=== PATIENT | female | born 1965 | race American Indian/Alaskan Native ===

== ENCOUNTER 2017-08-03 11:02 | Emergency (ER) | payer MEDICAID ==
[2017-08-03 11:56] VITALS: BP 146/82
[2017-08-03 12:17] LABS: Basophils # (Auto) 0.1 K/mm3 (0.0-0.1); Basophils % (Auto) 0.7 % (0.0-1.8); Eosinophils # (Auto) 0.1 K/mm3 (0.0-0.4); Eosinophils % (Auto) 1.1 % (0.0-4.3); Hematocrit 38.9 % (30.3-42.9); Hemoglobin 12.6 gm/dl (10.1-14.3); Lymphocytes # (Auto) 3.1 K/mm3 (1.2-5.4); Lymphocytes % (Auto) 29.6 % (13.4-35.0); Mean Corpuscular HGB Conc 32 % (30-34); Mean Corpuscular Hemoglobin 27 pg (28-32); Mean Corpuscular Volume 83 fl (79-97); Monocytes # (Auto) 0.8 K/mm3 (0.0-0.8); Monocytes % (Auto) 7.2 % (0.0-7.3); Platelet Count 284 K/mm3 (140-440); Red Blood Count 4.71 M/mm3 (3.65-5.03); Red Cell Distribution Width 13.3 % (13.2-15.2)
[2017-08-03 12:29] LABS: BUN/Creatinine Ratio 18; Blood Urea Nitrogen 14 mg/dL (7-17); Hemolysis Index 0
== END 2017-08-03 16:00 | disposition left against medical advice (07) ==
LOC: ED 11:02
DX: F20.9 Schizophrenia, unspecified (principal); Z90.49 Acquired absence of other specified parts of digestive tract; Z53.21 Procedure and treatment not carried out due to patient leaving prior to being seen by health care provider; Z79.899 Other long term (current) drug therapy
CPT/HCPCS: 36415; 80048; 85025; G0480; 80320

== ENCOUNTER 2017-08-06 11:28 | Emergency (ER) | payer MEDICAID ==
[2017-08-06 11:38] VITALS: BP 140/51
--- NOTE | 2017-08-06 12:12 | Emergency Department Report ---
ED Psych HPI - General Chief Complaint: Psych Stated Complaint: MENTAL HEALTH EVALUATION Time Seen by Provider: 08/06/17 11:57 Source: patient Mode of arrival: Ambulatory - History of Present Illness Initial Comments: Seen here 3 years ago for same 52-year-old patient states she's been doing crack now with hearing voices telling her to kill herself she is here for evaluation of detox hearing voices possible suicidal ideation MD Complaint: suicidal ideation, feels depressed -: Gradual, days(s), unknown Associated Psychiatric Symptoms: depression, auditory hallucinations, delusions History of same: Yes Quality: intermittent Improves With: none Worsens With: none Associated Symptoms: denies other symptoms, other (no medical complaints of chest pain no abdominal pain no stiff neck no fever no headache no focal neural complaints of trauma). denies: shortness of breath, nausea, vomiting, syncope, insomnia - Related Data Home Medications Medication Instructions Recorded Confirmed Last Taken Benztropine [Cogentin] 2 mg PO QHS 04/23/14 02/26/15 Unknown Sertraline [Zoloft] 50 mg PO QDAY 04/23/14 02/26/15 Unknown risperiDONE [RisperDAL] 4 mg PO QHS 04/23/14 02/26/15 Unknown Allergies Allergy/AdvReac Type Severity Reaction Status Date / Time No Known Allergies Allergy Verified 04/23/14 17:43 ED Review of Systems ROS: Stated complaint: MENTAL HEALTH EVALUATION Other details as noted in HPI Comment: All other systems reviewed and negative Constitutional: denies: diaphoresis, fever, malaise Eyes: denies: eye discharge, vision change ENT: denies: dental pain, hearing loss, epistaxis Respiratory: denies: shortness of breath, SOB with exertion, SOB at rest, stridor Cardiovascular: denies: chest pain, palpitations, dyspnea on exertion, orthopnea , edema, syncope, paroxysmal nocturnal dyspnea Gastrointestinal: denies: abdominal pain, nausea, vomiting, diarrhea, constipation, hematemesis, melena, hematochezia Genitourinary: denies: frequency, hematuria, discharge Musculoskeletal: denies: joint swelling, arthralgia Skin: denies: change in color, change in hair/nails, pruritus Neurological: denies: numbness, paresthesias, confusion Psychiatric: denies: auditory hallucinations, visual hallucinations, homicidal thoughts ED Past Medical Hx - Past Medical History Hx Diabetes: Yes Hx Psychiatric Treatment: Yes (schizophrenia) - Surgical History Hx Cholecystectomy: Yes Additional Surgical History: tumor removed - Social History Smoking Status: Current Some Day Smoker Substance Use Type: Cocaine - Medications Home Medications: Home Medications Medication Instructions Recorded Confirmed Last Taken Type Benztropine [Cogentin] 2 mg PO QHS 04/23/14 02/26/15 Unknown History Sertraline [Zoloft] 50 mg PO QDAY 04/23/14 02/26/15 Unknown History risperiDONE [RisperDAL] 4 mg PO QHS 04/23/14 02/26/15 Unknown History ED Physical Exam - General Limitations: No Limitations General appearance: alert, anxious - Head Head exam: Present: atraumatic, normocephalic - Eye Eye exam: Present: PERRL, EOMI - ENT ENT exam: Present: normal exam, normal orophraynx - Neck Neck exam: Present: normal inspection. Absent: tenderness, meningismus - Respiratory Respiratory exam: Present: normal lung sounds bilaterally. Absent: respiratory distress, wheezes, rales, rhonchi, stridor, accessory muscle use - Cardiovascular Cardiovascular Exam: Present: regular rate, normal rhythm, normal heart sounds. Absent: bradycardia, tachycardia, systolic murmur - GI/Abdominal GI/Abdominal exam: Present: soft. Absent: distended, tenderness, guarding, rebound, rigid, mass, pulsatile mass - Extremities Exam Extremities exam: Present: normal inspection, normal capillary refill. Absent: pedal edema, joint swelling - Neurological Exam Neurological exam: Present: alert, oriented X3, CN II-XII intact. Absent: motor sensory deficit - Psychiatric Psychiatric exam: Present: depressed, anxious - Skin Skin exam: Present: warm. Absent: cyanosis, diaphoretic, erythema, urticaria, vesicles, petechiae, pallor, abrasion, ecchymosis ED Course Vital Signs 08/06/17 08/06/17 11:32 11:55 Temperature 98.1 F Pulse Rate 107 H Respiratory 18 Rate Blood Pressure 140/51 ED Medical Decision Making - Lab Data Result diagrams: 08/06/17 11:55 08/06/17 11:55 - Medical Decision Making Patient doesn't have evidence of UTI glucose is improved in the ED she is essentially medically cleared for psychiatric evaluation was obtained by the mental health counselor who did not feel that she was currently actively suicidal we will therefore release a 1013 she is not acutely psychotic at this point time she is not gravely disabled she is not homicidal suicidal she is now improved. 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 ED Disposition Clinical Impression: Drug abuse, Medical clearance for psychiatric admission, Cocaine abuse Disposition: TO HOME OR SELFCARE Is pt being admited?: No Condition: Stable Instructions: Cocaine Abuse (ED), Depression (ED), Polysubstance Abuse (ED) Additional Instructions: Return immediately or call 911 if new or alarming symptoms worsening depression suicidal thoughts you were instructed to see Constantino Rose as directed by the counselor he also crisis line to call or call 911 if having depression or suicidal thoughts return immediately to the nearest ER stopped doing drugs and get detox and called Narcotics Anonymous Referrals: PRIMARY CAREMD [Primary Care Provider] - 3-5 Days Time of Disposition: 16:27
[2017-08-06 12:23] LABS: BUN/Creatinine Ratio 14; Basophils # (Auto) 0.1 K/mm3 (0.0-0.1); Basophils % (Auto) 0.6 % (0.0-1.8); Blood Urea Nitrogen 10 mg/dL (7-17); Calcium 9.5 mg/dL (8.4-10.2); Eosinophils # (Auto) 0.1 K/mm3 (0.0-0.4); Hemoglobin 12.6 gm/dl (10.1-14.3); Hemolysis Index 5; Lymphocytes # (Auto) 2.9 K/mm3 (1.2-5.4); Lymphocytes % (Auto) 28.5 % (13.4-35.0); Mean Corpuscular HGB Conc 32 % (30-34); Mean Corpuscular Hemoglobin 27 pg (28-32); Mean Corpuscular Volume 82 fl (79-97); Monocytes # (Auto) 0.8 K/mm3 (0.0-0.8); Monocytes % (Auto) 7.5 % (0.0-7.3); Platelet Count 294 K/mm3 (140-440); Red Blood Count 4.73 M/mm3 (3.65-5.03); Red Cell Distribution Width 13.5 % (13.2-15.2)
[2017-08-06 12:30] LABS: Bacteria,Urine 1+ /HPF (Negative); Bilirubin,Urine NEG (Negative); Blood,Urine NEG (Negative); Color,Urine Yellow (Yellow); Mucus,Urine 1+ /HPF; Urobilinogen,Urine < 2.0 mg/dL (<2.0)
[2017-08-06 12:33] LABS: Amphetamine Screen,Urine PRESUMPTIVE NEGATIVE; Benzodiazepines Screen,Urine PRESUMPTIVE NEGATIVE; Cannabinoid Screen,Urine PRESUMPTIVE NEGATIVE; Methadone Screen,Urine PRESUMPTIVE NEGATIVE; Opiate Screen,Urine PRESUMPTIVE NEGATIVE
[2017-08-06 12:57] LABS: Cocaine Screen,Urine PRESUMPTIVE POSITIVE
[2017-08-06] MEDS ORDERED: HumuLIN R SUB-Q ONE (13:18)
[2017-08-06] MEDS ORDERED: XYLOCAINE 1% MPF 5 mL INFILTRATI ONE (13:18)
[2017-08-06] MEDS ORDERED: ROCEPHIN IM ONE (13:18)
== END 2017-08-06 16:49 | disposition home or self-care (01) ==
LOC: ED 11:28
DX: F20.9 Schizophrenia, unspecified (principal); F17.200 Nicotine dependence, unspecified, uncomplicated; F14.10 Cocaine abuse, uncomplicated; E11.9 Type 2 diabetes mellitus without complications
CPT/HCPCS: 36415; 80048; 80307; 81001; 82962; 85025; 96372; 99283; G0480; J0696; 80320; J1815

== ENCOUNTER 2017-09-16 00:20 | Emergency (ER) | payer MEDICAID ==
[2017-09-16 01:41] LABS: Basophils # (Auto) 0.1 K/mm3 (0.0-0.1); Basophils % (Auto) 0.9 % (0.0-1.8); Eosinophils # (Auto) 0.1 K/mm3 (0.0-0.4); Eosinophils % (Auto) 1.1 % (0.0-4.3); Hematocrit 40.2 % (30.3-42.9); Hemoglobin 13.1 gm/dl (10.1-14.3); Lymphocytes # (Auto) 2.8 K/mm3 (1.2-5.4); Mean Corpuscular HGB Conc 33 % (30-34); Mean Corpuscular Hemoglobin 27 pg (28-32); Mean Corpuscular Volume 82 fl (79-97); Monocytes % (Auto) 10.7 % (0.0-7.3); Platelet Count 342 K/mm3 (140-440); Red Blood Count 4.89 M/mm3 (3.65-5.03); Red Cell Distribution Width 14.9 % (13.2-15.2)
[2017-09-16 01:56] LABS: BUN/Creatinine Ratio 17; Blood Urea Nitrogen 12 mg/dL (7-17); Calcium 10.3 mg/dL (8.4-10.2); Hemolysis Index 10
[2017-09-16 02:53] LABS: Bilirubin,Urine NEG (Negative); Blood,Urine NEG (Negative); Color,Urine Yellow (Yellow); Mucus,Urine FEW /HPF; Protein,Urine <15 mg/dL mg/dL (Negative)
[2017-09-16 02:58] LABS: Amphetamine Screen,Urine PRESUMPTIVE NEGATIVE; Benzodiazepines Screen,Urine PRESUMPTIVE NEGATIVE; Cannabinoid Screen,Urine PRESUMPTIVE NEGATIVE; Cocaine Screen,Urine PRESUMPTIVE NEGATIVE; Methadone Screen,Urine PRESUMPTIVE NEGATIVE; Opiate Screen,Urine PRESUMPTIVE NEGATIVE
--- NOTE | 2017-09-16 06:24 | Emergency Department Report ---
ED Psych HPI - General Chief Complaint: Psych Stated Complaint: MH EVALUATION Time Seen by Provider: 09/16/17 06:23 Source: patient Mode of arrival: Ambulatory Limitations: No Limitations - History of Present Illness MD Complaint: suicidal ideation -: Gradual Associated Psychiatric Symptoms: suicidal ideation, auditory hallucinations History of same: Yes Quality: constant Improves With: none Worsens With: none Context: not taking psychiatric Associated Symptoms: denies other symptoms Treatments Prior to Arrival: none If Self Harm: admits thoughts of - Related Data Home Medications Medication Instructions Recorded Confirmed Last Taken Benztropine [Cogentin] 2 mg PO QHS 04/23/14 02/26/15 Unknown Sertraline [Zoloft] 50 mg PO QDAY 04/23/14 02/26/15 Unknown risperiDONE [RisperDAL] 4 mg PO QHS 04/23/14 02/26/15 Unknown Previous Rx's Medication Instructions Recorded Last Taken Type Cephalexin [Keflex] 500 mg PO Q6HR #28 capsule 08/06/17 Unknown Rx Allergies Allergy/AdvReac Type Severity Reaction Status Date / Time No Known Allergies Allergy Verified 04/23/14 17:43 ED Review of Systems ROS: Stated complaint: MH EVALUATION Other details as noted in HPI Comment: All other systems reviewed and negative Constitutional: denies: chills, fever Eyes: denies: eye pain, eye discharge ENT: denies: ear pain Respiratory: denies: cough, shortness of breath Cardiovascular: denies: chest pain, palpitations Endocrine: increased thirst Gastrointestinal: denies: abdominal pain, nausea, vomiting, diarrhea Genitourinary: denies: urgency, dysuria, frequency Musculoskeletal: denies: back pain, joint swelling Skin: denies: rash Neurological: denies: headache, weakness, numbness Psychiatric: auditory hallucinations, suicidal thoughts. denies: anxiety, depression, homicidal thoughts Hematological/Lymphatic: denies: easy bleeding, easy bruising ED Past Medical Hx - Past Medical History Previous Medical History?: Yes Hx Diabetes: Yes Hx Psychiatric Treatment: Yes (schizophrenia) - Surgical History Past Surgical History?: Yes Hx Cholecystectomy: Yes Additional Surgical History: tumor removed - Social History Smoking Status: Never Smoker Substance Use Type: Cocaine - Medications Home Medications: Home Medications Medication Instructions Recorded Confirmed Last Taken Type Benztropine [Cogentin] 2 mg PO QHS 04/23/14 02/26/15 Unknown History Sertraline [Zoloft] 50 mg PO QDAY 04/23/14 02/26/15 Unknown History risperiDONE [RisperDAL] 4 mg PO QHS 04/23/14 02/26/15 Unknown History Cephalexin [Keflex] 500 mg PO Q6HR #28 capsule 08/06/17 Unknown Rx ED Physical Exam - General Limitations: No Limitations General appearance: alert, in no apparent distress - Head Head exam: Present: atraumatic, normocephalic, normal inspection - Eye Eye exam: Present: normal appearance, PERRL, EOMI Pupils: Present: normal accommodation - ENT ENT exam: Present: normal exam, normal orophraynx, mucous membranes moist - Neck Neck exam: Present: normal inspection, full ROM. Absent: tenderness - Respiratory Respiratory exam: Present: normal lung sounds bilaterally. Absent: respiratory distress, wheezes, rales, rhonchi, stridor - Cardiovascular Cardiovascular Exam: Present: regular rate, normal rhythm, normal heart sounds - GI/Abdominal GI/Abdominal exam: Present: soft, normal bowel sounds. Absent: distended, tenderness, guarding, rebound - Extremities Exam Extremities exam: Present: normal inspection, full ROM, normal capillary refill - Back Exam Back exam: Present: normal inspection, full ROM. Absent: tenderness, CVA tenderness (R), CVA tenderness (L) - Neurological Exam Neurological exam: Present: alert, oriented X3, CN II-XII intact - Psychiatric Psychiatric exam: Present: normal affect, flat affect, suicidal ideation. Absent: agitated, homicidal ideation - Skin Skin exam: Present: warm, dry, intact, normal color. Absent: rash ED Course Vital Signs 09/16/17 09/16/17 00:23 05:36 Temperature 98.4 F 98.7 F Pulse Rate 101 H 89 Respiratory 22 18 Rate Blood Pressure 155/94 109/56 O2 Sat by Pulse 98 98 Oximetry - Reevaluation(s) Reevaluation #1: 09/16/17 10:50 Patient is medically cleared for psych evaluation. ED Medical Decision Making - Lab Data Result diagrams: 09/16/17 01:18 09/16/17 01:18 - Radiology Data Radiology results: report reviewed - Medical Decision Making Suicide Ideation. Auditory Hallucination. Critical care attestation.: If time is entered above; I have spent that time in minutes in the direct care of this critically ill patient, excluding procedure time. 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
[2017-09-16] MEDS ORDERED: HumuLIN R SUB-Q ONE (06:37)
[2017-09-16] MEDS ORDERED: NACL 0.9% 1000 ML 1,000 ML IV ONE ×2 (09:13)
--- NOTE | 2017-09-16 12:47 | Consultation ---
History of Present Illness - Reason for Consult Consult date: 09/16/17 Reason for consult: Mental Health Evaluation Requesting physician: RAIN NICE - Chief Complaint Chief complaint: "I am not feeling well" - History of Present Psychiatric Illness 52 y.o. AA female presenting to the ER for AH's and SI's. Today the patient is calm and cooperative during the assessment. She stated hearing voices for several days. She stated that the voices are telling her to kill herself. She denies a suicide plan when asked. She would not confirm or deny a previous suicide attempt when asked. She stated that she was inpatient to a mental health facility a couple weeks ago. She stated that she receive the monthly Haldol injection, last injection before she was discharged from the mental health facility. She stated being on Haldol for months. Also, she stated being homeless. She denies HI's and VH's. She denies recreational drug use and alcohol consumption (etoh). Medications and Allergies Allergies Allergy/AdvReac Type Severity Reaction Status Date / Time No Known Allergies Allergy Verified 04/23/14 17:43 Home Medications Medication Instructions Recorded Confirmed Last Taken Type Benztropine [Cogentin] 2 mg PO QHS 04/23/14 09/16/17 Unknown History Sertraline [Zoloft] 50 mg PO QDAY 04/23/14 09/16/17 Unknown History risperiDONE [RisperDAL] 4 mg PO QHS 04/23/14 09/16/17 Unknown History Cephalexin [Keflex] 500 mg PO Q6HR #28 capsule 08/06/17 09/16/17 Unknown Rx Past psychiatric history - Past Medical History Past Medical History: diabetes Past Surgical History: No surgical history - past Psychiatric treatment and history psychiatric treatment history: Several inpatient psy settings. She cannot confirm or deny a fam psy hx. Mental Status Exam - Vital signs Last Vital Signs Temp 98.7 F 09/16/17 05:36 Pulse 89 09/16/17 05:36 Resp 18 09/16/17 05:36 BP 109/56 09/16/17 05:36 Pulse Ox 98 09/16/17 05:36 - Exam Narrative exam: MSE: Appearance: calm Behavior: poor eye contact Speech: regular rate and tone, hyper verbal Mood: "okay" Affect: congruent to mood Thought Process: disorganized Thought Content: denies HI's and VH's Motor Activity: sitting up in bed Cognition: A/O x 3 Insight: poor Judgment: poor Results Result Diagrams: 09/16/17 01:18 09/16/17 01:18 Abnormal lab results 09/16/17 09/16/17 09/16/17 Range/Units 01:18 01:18 01:18 MCH (28-32) pg Bay % (Auto) (0.0-7.3) % Bay # (0.0-0.8) K/mm3 Glucose 204 H (65-100) mg/dL POC Glucose (70-105) Calcium 10.3 H (8.4-10.2) mg/dL Salicylates < 0.3 L (2.8-20.0) mg/dL Acetaminophen < 5.0 L (10.0-30.0) ug/mL 09/16/17 09/16/17 09/16/17 Range/Units 01:18 05:41 07:12 MCH 27 L (28-32) pg Bay % (Auto) 10.7 H (0.0-7.3) % Bay # 1.0 H (0.0-0.8) K/mm3 Glucose (65-100) mg/dL POC Glucose 261 H 271 H (70-105) Calcium (8.4-10.2) mg/dL Salicylates (2.8-20.0) mg/dL Acetaminophen (10.0-30.0) ug/mL 09/16/17 Range/Units 10:52 MCH (28-32) pg Bay % (Auto) (0.0-7.3) % Bay # (0.0-0.8) K/mm3 Glucose (65-100) mg/dL POC Glucose 192 H (70-105) Calcium (8.4-10.2) mg/dL Salicylates (2.8-20.0) mg/dL Acetaminophen (10.0-30.0) ug/mL All other labs normal. Assessment and Plan Assessment and plan: Impression: Unspecified Psychosis. Today the patient is calm and cooperative during the assessment. UDS is negative. DDx: Schizophrenia, R/O Schizoaffective, R/O Bipolar DO with psychosis Recommendation/Plan: Continue 1013 with placement to inpatient psy services. Start Haldol 5 mg PO HS for psychosis. Per the patient she receive the monthly Haldol injection. Last injection "a couple weeks ago." Discussed possible EPS side effects of Haldol with patient.
--- NOTE | 2017-09-17 17:30 | Progress Note ---
Subjective - Reason for Consult Consult date: 09/17/17 Reason for consult: Psychiatric Follow-up Evaluation - Chief Complaint Chief complaint: "I feel good. " Patient is a 52 year old female who presents to the ER for AH 's and SI's. Today the patient is cooperative but anxious during the assessment. At times, patient thought process is disorganized and circumstantial. She states, " I feel good. I want to go to rehab. I'm here because I was on crack cocaine." She reports good sleep and appetite, although she does not like the food. She denies SI/HI's, A/VH's, and delusions. Medication compliance reported. She denies side effects of medication. Currently , patient is homeless. Mental Status Exam - Vital signs Last Vital Signs Temp 97.7 F 09/16/17 20:44 Pulse 90 09/16/17 20:44 Resp 20 09/17/17 12:03 BP 118/66 09/16/17 20:44 Pulse Ox 99 09/17/17 12:03 - Exam Narrative exam: Mental Status Exam General Appearance: Causally Dressed-hospital gown Eye Contact: Intermittent Orientation: Alert and oriented x 4 ( person, place, time, and situation) Attitude/Behavior: Cooperative Sensorium: Distracted Psychomotor & Musculoskeletal Activity: Laying in bed Mood: " Good." Anxious. Affect: Congruent with mood. Speech/Language: Regular rate and tone. Thought Processes: Circumstantial Thought Content: Impoverished. Patient denies delusions. Perception: Patient denies A/V/T hallucinations. Concentration/Attention: Impaired Suicidal Ideations/Plan: Patient denies. " No ma'am" Homicidal Ideations/Plan: Patient denies. " No ma'am" Insight: Variable Judgment: Variable Assessment and Plan Impression: Unspecified Psychosis. Today the patient is cooperative but anxious during the assessment. At times patient thought process is disorganized and circumstantial. She denies SI's, HI's, and delusions. UDS is negative. DDx: Schizophrenia, R/O Schizoaffective, R/O Bipolar DO with psychosis Recommendation/Plan: 1. Continue 1013 with placement to inpatient psychiatric services. 2. Continue Haldol 5 mg PO HS for psychosis. Per the patient she receive the monthly Haldol injection. Last injection "a couple weeks ago." Discussed possible EPS side effects of Haldol with patient. 3. Will continue to monitor mood, psychosis, sleep, appetite, compliance, and side effects.
[2017-09-17] MEDS: HALDOL PO SCH (21:57)
[2017-09-18] MEDS: HALDOL PO SCH (21:53)
--- NOTE | 2017-09-19 11:09 | Progress Note ---
Subjective - Reason for Consult Consult date: 09/19/17 Reason for consult: Psychiatry Follow-up - Chief Complaint Chief complaint: "I want to go to rehab" Patient is a 52 year old female who presents to the ER for AH 's and SI's. Today the patient is calm and cooperative during the assessment. The patient's thought process is circumstantial. She is adamant about going to rehab for her substance abuse hx. She denies SI/HI's and AVH's. She denies any side effects of her medications. Currently, patient is homeless. Mental Status Exam - Vital signs Last Vital Signs Temp 98.0 F 09/18/17 20:00 Pulse 101 H 09/18/17 20:00 Resp 20 09/18/17 20:00 BP 118/56 09/18/17 20:00 Pulse Ox 99 09/18/17 20:00 - Exam Narrative exam: MSE: Appearance: calm, cooperative Behavior: regular eye contact Speech: regular rate and tone Mood: "okay" Affect: congruent to mood Thought Process: circumstantial Thought Content: denies SI/HI's and AVH's Motor Activity: sitting up in bed Cognition: A/O x 3 Insight: variable Judgment: variable Assessment and Plan Impression: Unspecified Psychosis. Today the patient is calm and cooperative during the assessment. UDS is negative. DDx: Schizophrenia, R/O Schizoaffective, R/O Bipolar DO with psychosis Recommendation/Plan: Reevaluate 1013 in 24 hours to determine proper dipso. Continue Haldol 5 mg PO HS for psychosis. Per the patient she receive the monthly Haldol injection. Last injection "a couple weeks ago." Discussed possible EPS side effects of Haldol with patient.
[2017-09-19] MEDS: HALDOL PO SCH (22:00)
--- NOTE | 2017-09-20 12:02 | Progress Note ---
Subjective - Reason for Consult Consult date: 09/20/17 Reason for consult: Psychiatry Follow-up - Chief Complaint Chief complaint: "I am okay" Patient is a 52 year old female who presents to the ER for AH 's and SI's. Today the patient is calm and cooperative during the assessment. She stated that she will follow up with outpatient psy services when discharged. She stated that she will need placement because she's homeless. She denies Si/HI's and AVH's. Per the staff, no behavioral disturbance overnight. She denies any side effects of her medication. Mental Status Exam - Vital signs Last Vital Signs Temp 97.6 F 09/20/17 09:51 Pulse 94 H 09/20/17 09:51 Resp 20 09/20/17 09:51 BP 142/79 09/20/17 09:51 Pulse Ox 98 09/20/17 09:51 - Exam Narrative exam: MSE: Appearance: calm, cooperative Behavior: regular eye contact Speech: regular rate and tone Mood: "okay" Affect: congruent to mood Thought Process: circumstantial Thought Content: denies SI/HI's and AVH's Motor Activity: sitting up in bed Cognition: A/O x 3 Insight: fair Judgment: fair Assessment and Plan Impression: Unspecified Psychosis. Today the patient is calm and cooperative during the assessment. UDS is negative. This is the patient's baseline. DDx: Schizophrenia, R/O Schizoaffective, R/O Bipolar DO with psychosis Recommendation/Plan: Rescind 1013. Continue Haldol 5 mg PO HS for psychosis. Discussed possible EPS side effects of Haldol with patient. The patient can follow up at [facility] for outpatient psy services. Case Mgmt involvement, the patient will need placement.
[2017-09-21] MEDS: HALDOL PO SCH (00:04)
--- NOTE | 2017-09-21 11:00 | Emergency Department Report ---
Blank Doc - Documentation Documentation: As per the psych note, the patient has been evaluated multiple times and no longer appears to be a danger to herself and is not exhibiting any suicidal ideations. They have made the recommendation for the 1013 to be rescinded. The patient reiterated to me that she is not suicidal. She will be going to a nursing home from here with a safe discharge.
[2017-09-21 11:23] VITALS: BP 124/80
== END 2017-09-21 11:05 | disposition home or self-care (01) ==
LOC: ED 00:20 → EEVIPCON 00:20 → ED 09-21 11:05
DX: F20.9 Schizophrenia, unspecified (principal); E11.8 Type 2 diabetes mellitus with unspecified complications; Z90.49 Acquired absence of other specified parts of digestive tract; F14.10 Cocaine abuse, uncomplicated
CPT/HCPCS: 36415; 80048; 80307; 81001; 82962; 85025; 96372; 99284; G0480; 80320; 99285; J1815

== ENCOUNTER 2017-11-22 21:57 | Emergency (ER) | payer MEDICAID ==
--- NOTE | 2017-11-22 22:28 | Emergency Department Report ---
ED Psych HPI - General Chief Complaint: Psych Stated Complaint: DOUG EVAL Time Seen by Provider: 11/22/17 22:18 Source: EMS Mode of arrival: Ambulatory - History of Present Illness Initial Comments: Patient is 52 years old female with history of schizophrenia. Patient brought to the ER via police department. Patient stating that she is hearing voices asking her to jump in traffic. The patient denied any homicidal ideation. No visual hallucination. Patient had a previous suicide attempt with drug overdose. Patient admitted that she had been using cocaine in the last few days. MD Complaint: suicidal ideation Associated Psychiatric Symptoms: suicidal ideation, auditory hallucinations History of same: Yes Associated Symptoms: denies other symptoms If Self Harm: admits thoughts of, has plan - Related Data Home Medications Medication Instructions Recorded Confirmed Last Taken Benztropine [Cogentin] 2 mg PO QHS 04/23/14 09/16/17 Unknown Sertraline [Zoloft] 50 mg PO QDAY 04/23/14 09/16/17 Unknown risperiDONE [RisperDAL] 4 mg PO QHS 04/23/14 09/16/17 Unknown Previous Rx's Medication Instructions Recorded Last Taken Type cephALEXin [Keflex] 500 mg PO Q6HR #28 capsule 08/06/17 Unknown Rx Allergies Allergy/AdvReac Type Severity Reaction Status Date / Time No Known Allergies Allergy Verified 04/23/14 17:43 ED Review of Systems ROS: Stated complaint: DOUG EVAL Other details as noted in HPI Comment: All other systems reviewed and negative Constitutional: denies: chills, fever Respiratory: denies: cough, orthopnea, shortness of breath, SOB with exertion, SOB at rest, wheezing Cardiovascular: denies: chest pain, palpitations, dyspnea on exertion Gastrointestinal: denies: abdominal pain, nausea, vomiting, diarrhea, constipation, hematemesis, melena, hematochezia Neurological: denies: headache, weakness, numbness, paresthesias, confusion, abnormal gait ED Past Medical Hx - Past Medical History Previous Medical History?: Yes Hx Diabetes: Yes Hx Psychiatric Treatment: Yes (schizophrenia) - Surgical History Past Surgical History?: Yes Hx Cholecystectomy: Yes Additional Surgical History: tumor removed - Social History Smoking Status: Unknown if ever smoked Substance Use Type: Cocaine - Medications Home Medications: Home Medications Medication Instructions Recorded Confirmed Last Taken Type Benztropine [Cogentin] 2 mg PO QHS 04/23/14 09/16/17 Unknown History Sertraline [Zoloft] 50 mg PO QDAY 04/23/14 09/16/17 Unknown History risperiDONE [RisperDAL] 4 mg PO QHS 04/23/14 09/16/17 Unknown History cephALEXin [Keflex] 500 mg PO Q6HR #28 capsule 08/06/17 09/16/17 Unknown Rx ED Physical Exam - General Limitations: No Limitations General appearance: alert, in no apparent distress - Head Head exam: Present: atraumatic, normocephalic, normal inspection - Eye Eye exam: Present: normal appearance - ENT ENT exam: Present: normal exam, normal orophraynx, mucous membranes moist - Neck Neck exam: Present: normal inspection, full ROM. Absent: tenderness, meningismus, lymphadenopathy, thyromegaly - Respiratory Respiratory exam: Present: normal lung sounds bilaterally. Absent: respiratory distress, wheezes, rales, rhonchi, stridor, chest wall tenderness, accessory muscle use, decreased breath sounds, prolonged expiratory - Cardiovascular Cardiovascular Exam: Present: regular rate, normal rhythm, normal heart sounds - GI/Abdominal GI/Abdominal exam: Present: soft, normal bowel sounds. Absent: distended, tenderness, guarding, rebound, rigid, organomegaly, mass, bruit, pulsatile mass , hernia - Extremities Exam Extremities exam: Present: normal inspection, full ROM, normal capillary refill. Absent: tenderness, pedal edema, calf tenderness - Back Exam Back exam: Present: normal inspection, full ROM. Absent: tenderness, CVA tenderness (R), muscle spasm, paraspinal tenderness, vertebral tenderness - Neurological Exam Neurological exam: Present: alert, oriented X3, CN II-XII intact, normal gait, reflexes normal - Skin Skin exam: Present: warm, intact, normal color ED Course Vital Signs 11/22/17 22:00 Temperature 98.4 F Pulse Rate 102 H Respiratory 18 Rate Blood Pressure 134/84 Blood Pressure 134/84 [Right] O2 Sat by Pulse 98 Oximetry Critical care attestation.: If time is entered above; I have spent that time in minutes in the direct care of this critically ill patient, excluding procedure time. ED Disposition Clinical Impression: Acute psychosis, Suicidal ideation Disposition: [id number]/TX-65 PSY HOSP/PSY UNIT Is pt being admited?: No Condition: Stable
[2017-11-22 23:06] LABS: Bacteria,Urine 1+ /HPF (Negative); Bilirubin,Urine NEG (Negative); Blood,Urine NEG (Negative); Color,Urine Amber (Yellow); Mucus,Urine 3+ /HPF
[2017-11-22 23:09] LABS: HCG Qualitative,Urine Negative (Negative)
[2017-11-22 23:11] LABS: Basophils # (Auto) 0.1 K/mm3 (0.0-0.1); Basophils % (Auto) 0.7 % (0.0-1.8); Eosinophils # (Auto) 0.3 K/mm3 (0.0-0.4); Eosinophils % (Auto) 4.3 % (0.0-4.3); Hematocrit 35.5 % (30.3-42.9); Hemoglobin 11.5 gm/dl (10.1-14.3); Lymphocytes # (Auto) 3.1 K/mm3 (1.2-5.4); Lymphocytes % (Auto) 39.4 % (13.4-35.0); Mean Corpuscular HGB Conc 32 % (30-34); Mean Corpuscular Hemoglobin 26 pg (28-32); Mean Corpuscular Volume 80 fl (79-97); Monocytes # (Auto) 0.7 K/mm3 (0.0-0.8); Monocytes % (Auto) 9.7 % (0.0-7.3); Platelet Count 297 K/mm3 (140-440); Red Blood Count 4.42 M/mm3 (3.65-5.03); Red Cell Distribution Width 15.1 % (13.2-15.2)
[2017-11-22 23:12] LABS: Amphetamine Screen,Urine PRESUMPTIVE NEGATIVE; Benzodiazepines Screen,Urine PRESUMPTIVE NEGATIVE; Cannabinoid Screen,Urine PRESUMPTIVE NEGATIVE; Methadone Screen,Urine PRESUMPTIVE NEGATIVE; Opiate Screen,Urine PRESUMPTIVE NEGATIVE
[2017-11-22 23:33] LABS: BUN/Creatinine Ratio 9; Blood Urea Nitrogen 8 mg/dL (7-17); Calcium 9.9 mg/dL (8.4-10.2); Hemolysis Index 3
[2017-11-22 23:33] LABS: Cocaine Screen,Urine PRESUMPTIVE POSITIVE
[2017-11-23] MEDS ORDERED: LEVAQUIN PO SCH (01:00)
[2017-11-23] MEDS: LEVAQUIN PO SCH (09:43)
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
[2017-11-23] MEDS: HALDOL PO SCH (21:39)
[2017-11-24] MEDS: HALDOL PO SCH ×2 (10:48→22:41)
[2017-11-24] MEDS: LEVAQUIN PO SCH (10:49)
[2017-11-24] MEDS ORDERED: ATIVAN ONE (10:56)
[2017-11-24] MEDS ORDERED: ATIVAN PO ONE (11:04)
[2017-11-25] MEDS: LEVAQUIN PO SCH (11:19)
[2017-11-25] MEDS: HALDOL PO SCH ×2 (11:19→23:00)
[2017-11-26] MEDS: LEVAQUIN PO SCH (10:45)
[2017-11-26] MEDS: HALDOL PO SCH ×2 (10:45→21:33)
[2017-11-26] MEDS ORDERED: GEODON IM ONE (11:32)
[2017-11-26] MEDS ORDERED: ATIVAN ONE (11:35)
[2017-11-26] MEDS ORDERED: ATIVAN IM ONE (11:39)
--- NOTE | 2017-11-26 16:43 | Progress Note ---
Subjective - Reason for Consult Consult date: 11/26/17 Reason for consult: follow up - Chief Complaint Chief complaint: "I want to go to a fdc." Ms. Fuller is a 52 year old female who presented to the emergency room with command type auditory hallucinations. Patient stated that she was hearing voices asking her to jump in traffic. She reports recent use of cocaine. She asks for rehab but later asked to be sent to a fdc. She denies auditory hallucinations but does report paranoia 10/10 with 10 being the worst. She denies suicidal or homicidal ideation. She states the haldol is fine and does not have side effects. She reports fair sleep and appetite. Mental Status Exam - Vital signs Last Vital Signs Temp 97.8 F 11/25/17 20:00 Pulse 91 H 11/25/17 20:00 Resp 16 11/26/17 10:00 BP 140/98 11/25/17 20:00 Pulse Ox 98 11/26/17 10:00 Assessment and Plan Impression: Cocaine induced psychotic disorder: She reports auditory hallucinations and paranoia when she uses cocaine. She denies SI/HI. UDS positive for cocaine. Plan: Continue haldol 5mg po bid for psychotic symptoms. Continue 1013 with placement to inpatient psychiatric services. DDx: schizophrenia Staffed with Dr. Humberto Lopez
[2017-11-27] MEDS: LEVAQUIN PO SCH (10:45)
[2017-11-27] MEDS: HALDOL PO SCH ×2 (10:45→22:01)
--- NOTE | 2017-11-27 16:41 | Progress Note ---
Subjective - Reason for Consult Consult date: 11/27/17 Reason for consult: follow up - Chief Complaint Chief complaint: "I want to leave." Ms. Fuller is a 52 year old female who presented to the emergency room with command type auditory hallucinations. Patient stated that she was hearing voices asking her to jump in traffic. She reports recent use of cocaine. She repeatedly asked to leave and go to a residential. She denies suicidal or homicidal ideation. She denies side effects to haldol. She reports fair sleep and appetite. She began yelling and crying when she found out she could not leave. Mental Status Exam - Vital signs Last Vital Signs Temp 98.1 F 11/27/17 13:08 Pulse 85 11/27/17 13:08 Resp 16 11/27/17 13:08 BP 101/51 11/27/17 13:08 Pulse Ox 98 11/27/17 13:08 - Exam Narrative exam: Mental status exam: Orientation: time, place, person Affect: congruent Mood: irritable Thought content: other (denies suicidal or homicidal ideation) Thought Process: Intact Perceptions: states voices are gone. paranoia + Speech: normal rate and pattern Concentration: focused Motor activity: normal Level of consciousness: alert Memory: Intact Sleep Symptoms: fair Interaction: cooperative Insight: variable Judgment: variable Assessment and Plan Impression: Cocaine induced psychotic disorder: She reports auditory hallucinations and paranoia when she uses cocaine. She denies SI/HI. UDS positive for cocaine. Plan: Continue haldol 5mg po bid for psychotic symptoms. Continue 1013 with placement to inpatient psychiatric services. DDx: schizophrenia Staffed with Dr. Humberto Lopez
--- NOTE | 2017-11-28 10:56 | Progress Note ---
Subjective - Reason for Consult Consult date: 11/28/17 Reason for consult: Psychiatry Follow-up - Chief Complaint Chief complaint: "Hello" 52 year old female who presented to the emergency room with command type auditory hallucinations. Today the patient is calm and cooperative during the assessment. She stated that she feels "a little better." She stated that the voices has "decreased." She denies SI/HI's and AVH's. She denies any side effects of her medication. Mental Status Exam - Vital signs Last Vital Signs Temp 98.1 F 11/27/17 19:55 Pulse 96 H 11/27/17 19:55 Resp 16 11/27/17 19:55 BP 114/78 11/27/17 19:55 Pulse Ox 97 11/27/17 19:55 - Exam Narrative exam: MSE: Appearance: calm, cooperative Behavior: regular eye contact Speech: regular rate and tone Mood: "okay" Affect: congruent to mood Thought Process: circumstantial Thought Content: denies SI/HI's and AVH's Motor Activity: sitting up in the bed Cognition: A/O x 3 Insight: variable Judgment: variable Assessment and Plan Impression: Unspecified Psychosis. Substance Induced Psychosis (cocaine). Today the patient is calm and cooperative during the assessment. DDx: Schizophrenia, R/O Substance Induced Psychosis Recommendation/Plan: Reevaluate 1013 in 24 hours to determine proper dispo. Continue Haldol 5 mg PO BID for psychosis. Dispo: Dispo will be determined in 24 hours[address] Will staff with Dr. Key Lopez.
[2017-11-28] MEDS: LEVAQUIN PO SCH (11:33)
[2017-11-28] MEDS: HALDOL PO SCH ×2 (11:33→22:33)
[2017-11-28] MEDS ORDERED: GEODON IM ONE ×2 (14:00→14:06)
[2017-11-29 01:36] VITALS: BP 104/76
--- NOTE | 2017-11-29 10:22 | Progress Note ---
Subjective - Reason for Consult Consult date: 11/29/17 Reason for consult: Psychiatry Follow-up - Chief Complaint Chief complaint: "I will stop using drugs" 52 year old female who presented to the emergency room with command type auditory hallucinations. Today the patient is calm and cooperative during the assessment. She stated that she feel better and would follow up with [facility] for outpatient psy services. She denies SI/HI's and AVH' s. She denies any side effects of her mediation. Mental Status Exam - Vital signs Last Vital Signs Temp 97.8 F 11/28/17 20:00 Pulse 87 11/28/17 20:00 Resp 16 11/28/17 20:00 BP 104/76 11/28/17 20:00 Pulse Ox 99 11/28/17 20:00 - Exam Narrative exam: MSE: Appearance: calm, cooperative Behavior: regular eye contact Speech: regular rate and tone Mood: "okay" Affect: congruent to mood Thought Process: more organized Thought Content: denies SI/HI's and AVH's Motor Activity: sitting up in the bed Cognition: A/O x 3 Insight: fair Judgment: fair Assessment and Plan Impression: Unspecified Psychosis. Substance Induced Psychosis (cocaine). Today the patient is calm and cooperative during the assessment. The patient's psychosis had resolved. DDx: Schizophrenia, R/O Substance Induced Psychosis Recommendation/Plan: Rescind 1013. Continue Haldol 5 mg PO BID. Discussed the importance to abstain from recreational drugs. Dispo: The patient can follow up with [facility] for outpatient psy services. Case Mgmt involvement, the patient may need assistance with placement. Will staff with Dr. Key Lopez.
--- NOTE | 2017-11-29 11:24 | Emergency Department Report ---
Blank Doc - Documentation Documentation: Patient is a 52-year-old female with past history of bipolar disorder who was here several days ago brought in by [facility] [place] [employer] because she was having thoughts of jumping in front of traffic. Patient has been stabilized and is back on her meds. Patient denies any homicidal suicidal ideations at this time. Patient is to continue with Haldol 5 mg by mouth twice a day. Patient was seen by me and did express that she was feeling much improved and not having any suicidal thoughts at this time. Patient was given information for homeless shelters. Follow-up appointments have been made.
== END 2017-11-29 12:30 | disposition home or self-care (01) ==
LOC: EEVIPCON 21:57 → ED 21:57
DX: F23 Brief psychotic disorder (principal); E11.9 Type 2 diabetes mellitus without complications; F14.90 Cocaine use, unspecified, uncomplicated; Z90.49 Acquired absence of other specified parts of digestive tract
CPT/HCPCS: 36415; 80048; 80307; 81001; 81025; 82962; 85025; 96372; 99285; G0480; J2060; J3486; 80320

== ENCOUNTER 2017-12-10 11:34 | Emergency (ER) | payer MEDICAID ==
[2017-12-10 11:43] VITALS: BP 112/86
[2017-12-10 12:20] LABS: Basophils % (Auto) 0.6 % (0.0-1.8); Eosinophils # (Auto) 0.3 K/mm3 (0.0-0.4); Eosinophils % (Auto) 3.9 % (0.0-4.3); Hematocrit 37.8 % (30.3-42.9); Hemoglobin 12.4 gm/dl (10.1-14.3); Lymphocytes # (Auto) 2.8 K/mm3 (1.2-5.4); Lymphocytes % (Auto) 37.1 % (13.4-35.0); Mean Corpuscular HGB Conc 33 % (30-34); Mean Corpuscular Hemoglobin 26 pg (28-32); Mean Corpuscular Volume 80 fl (79-97); Monocytes # (Auto) 0.6 K/mm3 (0.0-0.8); Monocytes % (Auto) 7.4 % (0.0-7.3); Platelet Count 252 K/mm3 (140-440); Red Blood Count 4.73 M/mm3 (3.65-5.03); Red Cell Distribution Width 14.4 % (13.2-15.2)
[2017-12-10 12:28] LABS: BUN/Creatinine Ratio 14; Blood Urea Nitrogen 10 mg/dL (7-17); Calcium 9.7 mg/dL (8.4-10.2); Hemolysis Index 13
[2017-12-10 12:33] LABS: Amphetamine Screen,Urine PRESUMPTIVE NEGATIVE; Benzodiazepines Screen,Urine PRESUMPTIVE NEGATIVE; Cannabinoid Screen,Urine PRESUMPTIVE NEGATIVE; Cocaine Screen,Urine PRESUMPTIVE NEGATIVE; Methadone Screen,Urine PRESUMPTIVE NEGATIVE; Opiate Screen,Urine PRESUMPTIVE NEGATIVE
[2017-12-10 12:34] LABS: Bacteria,Urine 2+ /HPF (Negative); Bilirubin,Urine NEG (Negative); Blood,Urine NEG (Negative); Color,Urine Yellow (Yellow); Mucus,Urine FEW /HPF; Protein,Urine <15 mg/dL mg/dL (Negative)
== END 2017-12-10 12:20 | disposition left against medical advice (07) ==
LOC: ED 11:34
DX: R44.0 Auditory hallucinations (principal); Z53.21 Procedure and treatment not carried out due to patient leaving prior to being seen by health care provider
CPT/HCPCS: 36415; 80048; 80307; 81001; 85025; G0480; 80320

== ENCOUNTER 2018-05-08 15:20 | Emergency (ER) | payer MEDICAID ==
--- NOTE | 2018-05-08 15:59 | Emergency Department Report ---
Blank Doc - Documentation Documentation: This is a 52-year-old female that presents with medical clearance for rehab. This initial assessment/diagnostic orders/clinical plan/treatment(s) is/are subject to change based on patient's health status, clinical progression and re- assessment by fellow clinical providers in the ED. Further treatment and workup at subsequent clinical providers discretion. Patient/guardians urged not to elope from the ED as their condition may be serious if not clinically assessed and managed. Initial orders include: 1- Patient sent to [facility] for further evaluation and treatment 2- labs 3- UA
[2018-05-08 16:00] VITALS: BP 135/81
[2018-05-08 16:45] LABS: Basophils # (Auto) 0.1 K/mm3 (0.0-0.1); Basophils % (Auto) 0.8 % (0.0-1.8); Eosinophils # (Auto) 0.1 K/mm3 (0.0-0.4); Eosinophils % (Auto) 1.7 % (0.0-4.3); Hematocrit 38.6 % (30.3-42.9); Hemoglobin 12.6 gm/dl (10.1-14.3); Lymphocytes # (Auto) 2.6 K/mm3 (1.2-5.4); Mean Corpuscular HGB Conc 33 % (30-34); Mean Corpuscular Volume 82 fl (79-97); Monocytes # (Auto) 0.6 K/mm3 (0.0-0.8); Monocytes % (Auto) 8.6 % (0.0-7.3); Platelet Count 286 K/mm3 (140-440); Red Blood Count 4.71 M/mm3 (3.65-5.03); Red Cell Distribution Width 13.5 % (13.2-15.2)
[2018-05-08 17:07] LABS: Alanine Aminotransferase 34 units/L (7-56); Albumin 3.9 g/dL (3.9-5); BUN/Creatinine Ratio 17; Blood Urea Nitrogen 12 mg/dL (7-17); Calcium 9.9 mg/dL (8.4-10.2); Hemolysis Index 5
[2018-05-08] MEDS ORDERED: NACL 0.9% 1000 ML 1,000 ML IV ONE (20:31)
--- NOTE | 2018-05-08 21:16 | Emergency Department Report ---
ED Medical Clearance HPI - General Chief complaint: Medical Clearance Stated complaint: RHAB Time Seen by Provider: 05/08/18 15:58 Source: patient Mode of arrival: Ambulatory - History of Present Illness Initial comments: Patient 52-year-old -[place] female who presents for med clearance for drug rehabilitation choice is crack last use was 1 month ago patient denies sym ptoms at this time has history of hypertension diabetes patient states she has all medications position and are taking them however has not had metformin today patient denies polys no dypsea no uria been no nausea vomiting no fever chills no chest pain or shortness of breath patient appears well hydrated well- nourished and nontoxic Onset/Timin -: month(s) Place: home Alledged Intoxication: No Compliant with Home Medications: No Traumatic Symptoms: denies traumatic injury Associated Symptoms: denies: chest pain, shortness of breath, palpitations, cough, fever/chills, headaches, seizure, syncope, weakness Treatments Prior to Arrival: none Home medications: Home Medications Medication Instructions Recorded Confirmed Last Taken Benztropine [Cogentin] 2 mg PO QHS 04/23/14 11/25/17 Unknown Sertraline [Zoloft] 50 mg PO QDAY 04/23/14 11/25/17 Unknown risperiDONE [RisperDAL] 4 mg PO QHS 04/23/14 11/25/17 Unknown Previous Rx's Medication Instructions Recorded Last Taken Type cephALEXin [Keflex] 500 mg PO Q6HR #28 capsule 08/06/17 Unknown Rx Haloperidol [Haldol] 5 mg PO BID #60 tablet 11/29/17 Unknown Rx Allergies/Adverse reactions: Allergies Allergy/AdvReac Type Severity Reaction Status Date / Time No Known Allergies Allergy Verified 04/23/14 17:43 ED Review of Systems ROS: Stated complaint: RHAB Other details as noted in HPI Constitutional: denies: chills, fever Eyes: denies: eye pain, eye discharge, vision change ENT: denies: ear pain, throat pain Respiratory: denies: cough, shortness of breath, wheezing Cardiovascular: denies: chest pain, palpitations Endocrine: no symptoms reported Gastrointestinal: denies: abdominal pain, nausea, diarrhea Genitourinary: denies: urgency, dysuria, discharge Musculoskeletal: denies: back pain, joint swelling, arthralgia Skin: denies: rash, lesions Neurological: denies: headache, weakness, paresthesias Psychiatric: denies: anxiety, depression, homicidal thoughts, suicidal thoughts Hematological/Lymphatic: denies: easy bleeding, easy bruising ED Past Medical Hx - Past Medical History Previous Medical History?: Yes Hx Diabetes: Yes Hx Psychiatric Treatment: Yes (schizophrenia) - Surgical History Past Surgical History?: Yes Hx Cholecystectomy: Yes Additional Surgical History: tumor removed - Social History Smoking Status: Current Every Day Smoker Substance Use Type: Alcohol, Cocaine - Medications Home Medications: Home Medications Medication Instructions Recorded Confirmed Last Taken Type Benztropine [Cogentin] 2 mg PO QHS 04/23/14 11/25/17 Unknown History Sertraline [Zoloft] 50 mg PO QDAY 04/23/14 11/25/17 Unknown History risperiDONE [RisperDAL] 4 mg PO QHS 04/23/14 11/25/17 Unknown History cephALEXin [Keflex] 500 mg PO Q6HR #28 capsule 08/06/17 11/25/17 Unknown Rx Haloperidol [Haldol] 5 mg PO BID #60 tablet 11/29/17 Unknown Rx ED Physical Exam - General Limitations: No Limitations General appearance: alert, in no apparent distress - Head Head exam: Present: atraumatic, normocephalic - Eye Eye exam: Present: normal appearance, PERRL, EOMI Pupils: Present: normal accommodation - ENT ENT exam: Present: normal orophraynx, mucous membranes moist, TM's normal bilaterally, normal external ear exam - Neck Neck exam: Present: normal inspection, full ROM. Absent: tenderness, meningismus, lymphadenopathy, thyromegaly - Respiratory Respiratory exam: Present: normal lung sounds bilaterally. Absent: wheezes, stridor, chest wall tenderness - Cardiovascular Cardiovascular Exam: Present: regular rate, normal rhythm, normal heart sounds. Absent: systolic murmur, diastolic murmur, rubs, gallop - GI/Abdominal GI/Abdominal exam: Present: soft, normal bowel sounds - Rectal Rectal exam: Present: deferred - Extremities Exam Extremities exam: Present: normal inspection, full ROM, normal capillary refill - Back Exam Back exam: Present: normal inspection, full ROM. Absent: tenderness, CVA tenderness (R), CVA tenderness (L), muscle spasm, paraspinal tenderness, rash noted - Neurological Exam Neurological exam: Present: alert, oriented X3, CN II-XII intact, normal gait - Psychiatric Psychiatric exam: Present: normal affect, normal mood. Absent: depressed, agitated, anxious, manic, homicidal ideation, suicidal ideation - Skin Skin exam: Present: warm, dry, intact, normal color. Absent: rash ED Course Vital Signs 05/08/18 15:58 Temperature 97.7 F Pulse Rate 116 H Respiratory 20 Rate Blood Pressure 135/81 O2 Sat by Pulse 99 Oximetry ED Medical Decision Making - Lab Data Result diagrams: 05/08/18 16:27 05/08/18 16:27 - Medical Decision Making pt labs noted for B mg dl/ pt denies symptoms pt taking metformin, there is no n/v no cp no sob , pt it tolerating po hydration pt refuses ivf's as she is toleating po intake without symptoms, pt now advises that she is ready to go and cannot wait any longer pt leaving against medical advise at this time advises that she will take metformin upon arrival to home pt will follow up with her pcp tomorrow , there are no other symptoms at this time, no SI or HI, pt is a/o x 3 ambulatory with steady gait, pt demonstrates decision making capacity , and has the opportunity to ask and I have answered all questions to her satisfaction pt is leaving ama at this time. ED Disposition Clinical Impression: Medical clearance for psychiatric admission Disposition: DC-07 LEFT AGAINST MED ADVICE Is pt being admited?: No Does the pt Need Aspirin: No Condition: Stable Instructions: Medical Clearance for Psychiatric Care (ED), Diabetic Hyperglycemia (ED) Additional Instructions: [facility] tomorrow Referrals: PRIMARY CARE [Referring] - 3-5 Days Forms: AMA Form Time of Disposition: 21:26
[2018-05-08 22:11] LABS: Bilirubin,Urine NEG (Negative); Blood,Urine NEG (Negative); Color,Urine Yellow (Yellow); Mucus,Urine FEW /HPF; Protein,Urine <15 mg/dL mg/dL (Negative)
[2018-05-08 22:12] LABS: Amphetamine Screen,Urine PRESUMPTIVE NEGATIVE; Benzodiazepines Screen,Urine PRESUMPTIVE NEGATIVE; Cannabinoid Screen,Urine PRESUMPTIVE NEGATIVE; Cocaine Screen,Urine PRESUMPTIVE NEGATIVE; Methadone Screen,Urine PRESUMPTIVE NEGATIVE; Opiate Screen,Urine PRESUMPTIVE NEGATIVE
== END 2018-05-08 21:44 | disposition left against medical advice (07) ==
LOC: ED 15:20
DX: Z71.51 Drug abuse counseling and surveillance of drug abuser (principal); I10 Essential (primary) hypertension; E11.9 Type 2 diabetes mellitus without complications; F17.200 Nicotine dependence, unspecified, uncomplicated; F20.9 Schizophrenia, unspecified; Z90.49 Acquired absence of other specified parts of digestive tract
CPT/HCPCS: 36415; 80053; 80307; 81001; 82962; 85025; 99283; J7030

== ENCOUNTER 2018-12-17 03:21 | Emergency (ER) | payer MEDICAID ==
[2018-12-17 03:31] VITALS: BP 119/82
--- NOTE | 2018-12-17 04:08 | Emergency Department Report ---
ED Extremity Problem HPI - General Chief complaint: Extremity Problem,Nontraumatic Stated complaint: KNEE PAIN Time Seen by Provider: 12/17/18 04:00 Source: patient Mode of arrival: Ambulatory Limitations: No Limitations - History of Present Illness MD Complaint: extremity pain -: days(s) (2) Location: right, knee History of Same: Yes Radiation: none Severity scale (0 -10): 5 Consistency: constant Improves with: immobilization Worsens with: weight bearing, walking Associated Symptoms: denies other symptoms - Related Data Home Medications Medication Instructions Recorded Confirmed Last Taken Benztropine [Cogentin] 2 mg PO QHS 04/23/14 11/25/17 Unknown Sertraline [Zoloft] 50 mg PO QDAY 04/23/14 11/25/17 Unknown risperiDONE [RisperDAL] 4 mg PO QHS 04/23/14 11/25/17 Unknown Previous Rx's Medication Instructions Recorded Last Taken Type cephALEXin [Keflex] 500 mg PO Q6HR #28 capsule 08/06/17 Unknown Rx Haloperidol [Haldol] 5 mg PO BID #60 tablet 11/29/17 Unknown Rx Naproxen [Naprosyn] 500 mg PO BID #14 tablet 12/17/18 Unknown Rx Allergies Allergy/AdvReac Type Severity Reaction Status Date / Time No Known Allergies Allergy Verified 04/23/14 17:43 ED Review of Systems ROS: Stated complaint: KNEE PAIN Other details as noted in HPI Comment: All other systems reviewed and negative Constitutional: denies: chills, fever, malaise Respiratory: denies: cough, shortness of breath Cardiovascular: denies: chest pain, palpitations Gastrointestinal: denies: abdominal pain, nausea, vomiting Neurological: denies: headache, weakness ED Past Medical Hx - Past Medical History Previous Medical History?: Yes Hx Diabetes: Yes Hx Psychiatric Treatment: Yes (schizophrenia) - Surgical History Past Surgical History?: Yes Hx Cholecystectomy: Yes Additional Surgical History: tumor removed - Social History Smoking Status: Current Every Day Smoker Substance Use Type: Cocaine - Medications Home Medications: Home Medications Medication Instructions Recorded Confirmed Last Taken Type Benztropine [Cogentin] 2 mg PO QHS 04/23/14 11/25/17 Unknown History Sertraline [Zoloft] 50 mg PO QDAY 04/23/14 11/25/17 Unknown History risperiDONE [RisperDAL] 4 mg PO QHS 04/23/14 11/25/17 Unknown History cephALEXin [Keflex] 500 mg PO Q6HR #28 capsule 08/06/17 11/25/17 Unknown Rx Haloperidol [Haldol] 5 mg PO BID #60 tablet 11/29/17 Unknown Rx Naproxen [Naprosyn] 500 mg PO BID #14 tablet 12/17/18 Unknown Rx ED Physical Exam - General Limitations: No Limitations General appearance: alert, in no apparent distress - Head Head exam: Present: atraumatic, normocephalic, normal inspection - Eye Eye exam: Present: normal appearance - ENT ENT exam: Present: normal exam, normal orophraynx, mucous membranes moist - Neck Neck exam: Present: normal inspection, full ROM. Absent: tenderness, meningismus, lymphadenopathy, thyromegaly - Respiratory Respiratory exam: Present: normal lung sounds bilaterally - Cardiovascular Cardiovascular Exam: Present: regular rate, normal rhythm, normal heart sounds - GI/Abdominal GI/Abdominal exam: Present: soft, normal bowel sounds. Absent: distended, tenderness, guarding, rebound, rigid, hernia - Expanded Lower Extremity Exam Right Knee exam: Present: normal inspection, full ROM, tenderness. Absent: swelling, abrasion, laceration, ecchymosis Neuro vascular tendon exam: Present: no vascular compromise - Neurological Exam Neurological exam: Present: alert, oriented X3, CN II-XII intact - Skin Skin exam: Present: warm, intact, normal color ED Course Vital Signs 12/17/18 03:24 Temperature 98.7 F Pulse Rate 103 H Respiratory 18 Rate Blood Pressure 119/82 O2 Sat by Pulse 100 Oximetry ED Medical Decision Making - Radiology Data Radiology results: image reviewed interpreted by me: right knee x-ray is negative for acute finding. Critical care attestation.: If time is entered above; I have spent that time in minutes in the direct care of this critically ill patient, excluding procedure time. ED Disposition Clinical Impression: Knee pain, acute Disposition: DC-01 TO HOME OR SELFCARE Is pt being admited?: No Condition: Stable Instructions: Osteoarthritis (ED) Prescriptions: Naproxen [Naprosyn] 500 mg PO BID #14 tablet Referrals: [facility] [Provider Group] - 3-5 Days
[2018-12-17] MEDS ORDERED: KETOROLAC 60 MG/2 ML INJ IM ONE (04:50)
[2018-12-17] MEDS ORDERED: IBUPROFEN 600 MG TAB PO ONE ×2 (05:24→05:51)
--- NOTE | 2018-12-17 06:23 | XRay Report ---
RIGHT KNEE 3 VIEWS 0419 INDICATION: knee pain COMPARISON: None available. FINDINGS: Prominent degenerative changes are seen which most affects the patellofemoral and especiall y the medial compartment. Prominent medial joint space narrowing is seen and genu various is noted. A large osteophyte projects from the medial aspect of the distal femur. No fractures or dislocations a re seen. Flocculent calcification posteriorly could represent a small synovial osteochondroma. Signer Name: Maury Fuller MD Signed: 12/17/2018 6:19 AM Workstation Name: [id number]
== END 2018-12-17 05:15 | disposition home or self-care (01) ==
LOC: ED 03:21
DX: M25.561 Pain in right knee (principal); E11.9 Type 2 diabetes mellitus without complications; F20.9 Schizophrenia, unspecified; F17.200 Nicotine dependence, unspecified, uncomplicated; Z90.49 Acquired absence of other specified parts of digestive tract; Z79.899 Other long term (current) drug therapy

== ENCOUNTER 2019-08-17 11:50 | Emergency (ER) | payer MEDICAID ==
[2019-08-17 12:15] VITALS: BP 124/78
--- NOTE | 2019-08-17 12:35 | Emergency Department Report ---
HPI - General Chief Complaint: Weakness PUI?: No Time Seen by Provider: 08/17/19 12:26 - HPI HPI: Room 18 The patient is a 54-year-old female present with a chief complaint of sleeping at a bus stop. EMS reportedly found the patient outside and believes she was in intoxicated from alcohol sleeping at a bus stop so the brought her to the ED. The patient states she is just been trying to get back on her psychiatric medications 1 of which includes Risperdal. Patient denies suicidal homicidal ideation. Patient denies auditory visual hallucinations. Patient states she otherwise feels okay ED Past Medical Hx - Past Medical History Previous Medical History?: Yes Hx Diabetes: Yes Hx Psychiatric Treatment: Yes (schizophrenia) - Surgical History Past Surgical History?: Yes Hx Cholecystectomy: Yes Additional Surgical History: tumor removed - Family History Family history: no significant - Social History Smoking Status: Current Every Day Smoker (1/2 pack/day) Substance Use Type: Alcohol (Occasional), Cocaine - Medications Home Medications: Home Medications Medication Instructions Recorded Confirmed Last Taken Type Benztropine [Cogentin] 2 mg PO QHS 04/23/14 11/25/17 Unknown History Sertraline [Zoloft] 50 mg PO QDAY 04/23/14 11/25/17 Unknown History risperiDONE [RisperDAL] 4 mg PO QHS 04/23/14 11/25/17 Unknown History cephALEXin [Keflex] 500 mg PO Q6HR #28 capsule 08/06/17 11/25/17 Unknown Rx haloperidoL [Haldol] 5 mg PO BID #60 tablet 11/29/17 Unknown Rx Naproxen [Naprosyn] 500 mg PO BID #14 tablet 12/17/18 Unknown Rx ED Review of Systems ROS: Stated complaint: ETOH Other details as noted in HPI Constitutional: no symptoms reported Respiratory: no symptoms reported Endocrine: no symptoms reported Psychiatric: denies: auditory hallucinations, visual hallucinations, homicidal thoughts, suicidal thoughts Physical Exam - Physical Exam Vital Signs: Vital Signs 08/17/19 12:09 Temperature 97.8 F Pulse Rate 75 Respiratory 14 Rate Blood Pressure 124/78 Blood Pressure 124/78 [Right] O2 Sat by Pulse 100 Oximetry Physical Exam: GENERAL: The patient is well-developed well-nourished female lying on stretcher not appearing to be in acute distress. [] HEENT: Normocephalic. Atraumatic. Extraocular motions are intact. Patient has moist mucous membranes. NECK: Supple. Trachea midline CHEST/LUNGS: Clear to auscultation. There is no respiratory distress noted. HEART/CARDIOVASCULAR: Regular. There is no tachycardia. There is no gallop rub or murmur. ABDOMEN: Abdomen is soft, nontender. Patient has normal bowel sounds. There is no abdominal distention. SKIN: There is no rash. There is no edema. There is no diaphoresis. NEURO: The patient is awake, alert, and oriented. The patient is cooperative. The patient has normal speech MUSCULOSKELETAL: There is no evidence of acute injury. ED Course Vital Signs 08/17/19 12:09 Temperature 97.8 F Pulse Rate 75 Respiratory 14 Rate Blood Pressure 124/78 Blood Pressure 124/78 [Right] O2 Sat by Pulse 100 Oximetry - Reevaluation(s) Reevaluation #1: 08/17/19 14:31 Patient requesting to go home ED Medical Decision Making - Lab Data Result diagrams: 08/17/19 12:46 08/17/19 12:46 Laboratory Tests 08/17/19 08/17/19 08/17/19 12:46 12:46 12:46 WBC 6.6 RBC 4.68 Hgb 12.9 Hct 39.1 MCV 84 MCH 28 MCHC 33 RDW 13.5 Plt Count 251 Lymph % (Auto) 36.8 H [place] % (Auto) 9.0 H Eos % (Auto) 6.1 H Baso % (Auto) 0.8 Lymph # 2.4 [place] # 0.6 Eos # 0.4 Baso # 0.1 Seg Neutrophils % 47.3 Seg Neutrophils # 3.1 Sodium 137 Potassium 4.3 Chloride 100.3 Carbon Dioxide 25 Anion Gap 16 BUN 7 Creatinine 0.7 Estimated GFR > 60 BUN/Creatinine Ratio 10 Glucose 231 H Calcium 9.9 Urine Color Urine Turbidity Urine pH Ur Specific [place] Urine Protein Urine Glucose (UA) Urine Ketones Urine Blood Urine Nitrite Urine Bilirubin Urine Urobilinogen Ur Leukocyte Esterase Urine WBC (Auto) Urine RBC (Auto) U Epithel Cells (Auto) Valproic Acid < 2.8 L Plasma/Serum Alcohol 08/17/19 08/17/19 12:46 14:03 WBC RBC Hgb Hct MCV MCH MCHC RDW Plt Count Lymph % (Auto) [place] % (Auto) Eos % (Auto) Baso % (Auto) Lymph # [place] # Eos # Baso # Seg Neutrophils % Seg Neutrophils # Sodium Potassium Chloride Carbon Dioxide Anion Gap BUN Creatinine Estimated GFR BUN/Creatinine Ratio Glucose Calcium Urine Color Yellow Urine Turbidity Clear Urine pH 6.0 Ur Specific [place] 1.013 Urine Protein <15 mg/dl Urine Glucose (UA) Neg Urine Ketones Neg Urine Blood Neg Urine Nitrite Neg Urine Bilirubin Neg Urine Urobilinogen 2.0 Ur Leukocyte Esterase Neg Urine WBC (Auto) 1.0 Urine RBC (Auto) < 1.0 U Epithel Cells (Auto) 1.0 Valproic Acid Plasma/Serum Alcohol < 0.01 Critical care attestation.: If time is entered above; I have spent that time in minutes in the direct care of this critically ill patient, excluding procedure time. ED Disposition Clinical Impression: Normal exam Disposition: DC-01 TO HOME OR SELFCARE Is pt being admited?: No Does the pt Need Aspirin: No Condition: Stable Additional Instructions: Return to the emergency department should you develop worsening symptoms, inability to tolerate food or liquids, high fever or any other concerns Referrals: PRIMARY MD ALYSSIA [Primary Care Provider] - 3-5 Days Time of Disposition: 14:32
[2019-08-17 13:13] LABS: Basophils # (Auto) 0.1 K/mm3 (0.0-0.1); Basophils % (Auto) 0.8 % (0.0-1.8); Eosinophils # (Auto) 0.4 K/mm3 (0.0-0.4); Eosinophils % (Auto) 6.1 % (0.0-4.3); Hematocrit 39.1 % (30.3-42.9); Hemoglobin 12.9 gm/dl (10.1-14.3); Lymphocytes # (Auto) 2.4 K/mm3 (1.2-5.4); Lymphocytes % (Auto) 36.8 % (13.4-35.0); Mean Corpuscular HGB Conc 33 % (30-34); Mean Corpuscular Volume 84 fl (79-97); Monocytes # (Auto) 0.6 K/mm3 (0.0-0.8); Platelet Count 251 K/mm3 (140-440); Red Blood Count 4.68 M/mm3 (3.65-5.03); Red Cell Distribution Width 13.5 % (13.2-15.2)
[2019-08-17 13:26] LABS: BUN/Creatinine Ratio 10; Blood Urea Nitrogen 7 mg/dL (7-17); Calcium 9.9 mg/dL (8.4-10.2); Hemolysis Index 10
[2019-08-17 14:09] LABS: Bilirubin,Urine NEG (Negative); Blood,Urine NEG (Negative); Color,Urine Yellow (Yellow); Protein,Urine <15 mg/dL mg/dL (Negative); RBC,Urine < 1.0 /HPF (0.0-6.0)
== END 2019-08-17 16:03 | disposition home or self-care (01) ==
LOC: ED 11:50
DX: R53.1 Weakness (principal); E11.9 Type 2 diabetes mellitus without complications; F20.9 Schizophrenia, unspecified; F17.200 Nicotine dependence, unspecified, uncomplicated; Z00.00 Encounter for general adult medical examination without abnormal findings; F14.10 Cocaine abuse, uncomplicated; Z90.49 Acquired absence of other specified parts of digestive tract; Z98.890 Other specified postprocedural states; Z79.899 Other long term (current) drug therapy
CPT/HCPCS: 36415; 80048; 80164; 80320; 81001; 85025; 99283; G0480

== ENCOUNTER 2020-12-18 20:34 | Emergency (ER) | payer MEDICAID ==
[2020-12-18 21:05] VITALS: BP 148/99
== END 2020-12-18 21:35 | disposition left against medical advice (07) ==
LOC: ED 20:34
DX: Z76.0 Encounter for issue of repeat prescription (principal); Z53.21 Procedure and treatment not carried out due to patient leaving prior to being seen by health care provider